=== PATIENT | male | born 1965 | race Caucasian/White ===

== ENCOUNTER 2020-08-19 13:02 | Emergency (ER) | payer MEDICAID, OTHER, SELFPAY ==
[~2020-08-19] VITALS: Ht 180.3 cm; Wt 99.7 kg
[2020-08-19 13:02] VITALS: BP 134/79
--- OUTSIDE RECORDS SUMMARY | 2020-08-19 13:09 | CCD ---
Author Author [facility] Organization [facility] Address Unknown Phone Unavailable Support Name Relationship Address Phone Rudolph SANCHEZ Next Of Kin [address] [place] [address] SELF EMPLOYED Next Of Kin [address] [place] [address] SE Next Of Kin Unknown Unavailable NONE, PATIENT PER Next Of Kin - - -, [place] - - KACIE SANCHEZ Next Of Kin [address] [place] [address] Re-disclosure Warning The records that you are about to access may contain information from federally-assisted alcohol or drug abuse programs. If such information is present, then the following federally mandated warning applies: This information has been disclosed to you from records protected by federal confidentiality rules (42 CFR part 2). The federal rules prohibit you from making any further disclosure of this information unless further disclosure is expressly permitted by the written consent of the person to whom it pertains or as otherwise permitted by 42 CFR part 2. A general authorization for the release of medical or other information is NOT sufficient for this purpose. The Federal rules restrict any use of the information to criminally investigate or prosecute any alcohol or drug abuse patient.The records that you are about to access may contain highly sensitive health information, the redisclosure of which is protected by Article 27-F of the [facility] Public Health law. If you continue you may have access to information: Regarding HIV / AIDS; Provided by facilities licensed or operated by the [facility] Office of Mental Health; or Provided by the [facility] Office for People With Developmental Disabilities. If such information is present, then the following [facility] mandated warning applies: This information has been disclosed to you from confidential records which are protected by state law. State law prohibits you from making any further disclosure of this information without the specific written consent of the person to whom it pertains, or as otherwise permitted by law. Any unauthorized further disclosure in violation of state law may result in a fine or detention sentence or both. A general authorization for the release of medical or other information is NOT sufficient authorization for further disc losure. Insurance Providers Payer name Policy type / Coverage type Policy ID Covered constitution party ID Covered constitution party's relationship to winter Policy Winter Plan Information [facility] COMMUNITY PLAN MCDO [id number] SP [id number] [facility] MEDICAID [id number] Denise [id number] [facility] MEDICAID PI PI [facility] COMMUNITY PLAN XIX [id number] 18 [id number] [facility] AMERICHOICE XIX -HMO [id number] 18 [id number] SELF PAY SP [id number] S [id number] [place] BLUE SHIELD -O/P [id number] 18 [id number]
[2020-08-19] MEDS ORDERED: DOXY100C37 PO (13:44)
--- OUTSIDE RECORDS SUMMARY | 2020-08-19 13:50 | CCD ---
Author Author [facility] Organization [facility] Address Unknown Phone Unavailable Support Name Relationship Address Phone Rudolph SANCHEZ Next Of Kin [address] [place] [address] SELF EMPLOYED Next Of Kin [address] [place] [address] SE Next Of Kin Unknown Unavailable NONE, PATIENT PER Next Of Kin - - -, [place] - - KACIE SANCHEZ Next Of Kin [address] [place] [address] Re-disclosure Warning The records that you are [...] is protected by Article 27-F of the [facility] Public Health law. If you continue you may have access to information: Regarding HIV / AIDS; Provided by facilities licensed or operated by the [facility] Office of Mental Health; or Provided by the [facility] Office for People With Developmental Disabilities. If such information is present, then the following [facility] mandated warning applies: This information has [...] law may result in a fine or long term sentence or both. A general authorization for the release of medical or other information is NOT sufficient authorization for further disc losure. Insurance Providers Payer name Policy type / Coverage type Policy ID Covered green party ID Covered green party's relationship to winter Policy Winter Plan Information [facility] COMMUNITY PLAN MCDO [id number] SP [id number] [facility] MEDICAID [id number] Denise [id number] [facility] MEDICAID PI PI [facility] COMMUNITY PLAN XIX [id number] 18 [id number] [facility] AMERICHOICE XIX -HMO [id number] 18 [id number] SELF PAY SP [id number] S [id number] [place] BLUE SHIELD -O/P [id number]
== END 2020-08-19 13:55 | disposition home or self-care (01) ==
LOC: M ED 13:02
DX: L03.313 Cellulitis of chest wall (principal); I10 Essential (primary) hypertension; F17.200 Nicotine dependence, unspecified, uncomplicated; F12.10 Cannabis abuse, uncomplicated

== ENCOUNTER → 2020-10-28 | Outpatient (REF) | payer OTHER ==
[~2020-10-28] MED LIST: DOXY100C37 PO
[2020-10-28 17:13] LABS: BASO # 0.1 10^3/uL (0.0-0.2); BASO % 0.5 % (0.0-1.0); EOS # 0.3 10^3/uL (0.0-0.5); EOS % 2.7 % (0.0-3.0); LYMPH # 2.8 10^3/uL (1.5-5.0); LYMPH % 23.4 % (24.0-44.0); MEAN CORPUSCULAR HGB CONC 32.6 g/dl (32.0-36.5); MONO # 0.8 10^3/uL (0.0-0.8); MONO % 6.3 % (2.0-8.0); NEUTROPHILS % 66.5 % (36.0-66.0); PLATELET COUNT, AUTOMATED 290 10^3/uL (150-450); RED BLOOD COUNT 4.84 10^6/uL (4.30-6.10)
[2020-10-28 17:48] LABS: ALBUMIN 4.3 GM/DL (3.2-5.2); ALT/SGPT 48 U/L (12-78); BILIRUBIN,TOTAL 0.3 MG/DL (0.2-1.0); BLOOD UREA NITROGEN 17 MG/DL (7-18); CALCIUM LEVEL 9.9 MG/DL (8.5-10.1); CARBON DIOXIDE LEVEL 28 MEQ/L (21-32); CHLORIDE LEVEL 103 MEQ/L (98-107); CHOLESTEROL LEVEL 211 MG/DL (<200); CHOLESTEROL RISK RATIO 3.459 (<5); CREATININE FOR GFR 0.91 MG/DL (0.70-1.30); FREE T4 1.02 NG/DL (0.76-1.46); GLOMERULAR FILTRATION RATE > 60.0 (>56); GLUCOSE, FASTING 92 MG/DL (70-100); HDL CHOLESTEROL 61 MG/DL (>40); LDL CHOLESTEROL 122 MG/DL (<100); MAGNESIUM LEVEL 2.3 MG/DL (1.8-2.4); NON-HDL-C 150 MG/DL; POTASSIUM SERUM 4.3 MEQ/L (3.5-5.1); SODIUM LEVEL 138 MEQ/L (136-145); TOTAL PROTEIN 7.9 GM/DL (6.4-8.2); TRIGLYCERIDES LEVEL 141 MG/DL (<150)
[2020-10-28 18:08] LABS: HEMOGLOBIN A1c 5.4 %
== END ==
LOC: M SFHCPLAZ 14:52
PROVIDERS: ATTEND Nurse Practitioner Family
DX: I10 Essential (primary) hypertension (principal); E78.5 Hyperlipidemia, unspecified

== ENCOUNTER → 2020-10-28 | Outpatient (CLI) | payer OTHER ==
--- NOTE | 2020-10-28 15:28 | REPPI ---
INDICATION: M54.5 BACK PAIN AT L4-L5 LEVEL COMPARISON: 08/01/2015 TECHNIQUE: AP, lateral, bilateral oblique, and coned-down views of the lumbar spine. FINDINGS: Alignment and lordosis maintained. Vertebral bodies are intact. No acute fracture/compression injury or subluxation. Moderate to advanced multilevel degenerative changes include endplate sclerosis, disc space narrowing, osteophytosis and facet hypertrophy. Findings appear minimally increased from prior examination. IMPRESSION: Moderate/early advanced multilevel degenerative changes. No acute fracture or dislocation <Electronically signed by Parker Dao > 10/28/20 1524
== END ==
LOC: M PLAIMG 14:53
PROVIDERS: ATTEND Nurse Practitioner Family
DX: M54.5 Low back pain (principal)

== ENCOUNTER → 2021-01-14 | Outpatient (CLI) | payer OTHER ==
[~2021-01-14] MED LIST changes: -DOXY100C37 PO; +DOXY1CAP62 PO
--- NOTE | 2021-01-14 18:35 | REPVR ---
PROCEDURE INFORMATION: Exam: MR Lumbar Spine Without Contrast Exam date and time: 01/14/2021 4:23 PM Age: 55 years old Clinical indication: Low back pain; Patient HX: Lbp; Additional info: Radiculopathy TECHNIQUE: Imaging protocol: Multiplanar magnetic resonance images of the lumbar spine without intravenous contrast. COMPARISON: CR SPINE LS COMPLETE 10/28/2020 3:16 PM FINDINGS: Vertebrae: Degenerative disc disease and facet arthrosis is present throughout the lower thoracic and lumbar spine. There are Schmorl's nodes throughout the lower thoracic and lumbar spine with Modic type 2 endplate signal change at all levels. Spinal cord: The lower thoracic cord has a normal appearance and the conus terminates at the level of the L1-L2 disc space. L1-L2: Mild posterior broad-based disc protrusion. The facet joints are unremarkable. No focal disc protrusion or nerve root impingement. Mild spinal stenosis. L2-L3: Mild posterior broad-based disc bulge. Right foraminal/far lateral focal disc bulge. Mild bilateral facet hypertrophy. No definite nerve root impingement. Mild spinal stenosis. L3-L4: Posterior broad-based disc protrusion. Posterior central/right posterior paracentral focal disc extrusion. The extruded disc material measures approximately 10 mm long by 8 mm AP x 10 mm transverse. There is moderate bilateral facet hypertrophy and ligamentum flavum thickening. Moderate spinal stenosis. L4-L5: There is Modic type 1 endplate signal change and increased signal within the disc space at L4-L5. Minimal retrolisthesis of L4. Posterior broad-based disc protrusion, bilateral facet hypertrophy and ligamentum flavum thickening, worse on the right. No focal disc protrusion or nerve root impingement. Moderate/severe spinal stenosis. L5-S1: Posterior broad-based disc protrusion and mild bilateral facet hypertrophy. No focal disc protrusion or nerve root impingement. Mild spinal stenosis. Soft tissues: Unremarkable. IMPRESSION: 1. Degenerative disc disease and facet arthrosis throughout the lower thoracic and lumbar spine with Schmorl's nodes and associated Modic type 2 endplate signal change throughout. 2. Modic type 1 endplate signal change at L4-L5. While this is likely secondary to degenerative disc disease, these signal characteristics may also be seen with disco-vertebral infection. Close clinical correlation and follow-up MRI is recommended as clinically warranted. 3. L3-L4 posterior central/right posterior paracentral focal disc extrusion. 4. Moderate severe spinal stenosis at L4-L5. Electronically signed by: Noe Franco On 01/14/2021 18:34:41 PM
== END ==
LOC: M RAD 15:08
PROVIDERS: ATTEND Nurse Practitioner Family
DX: M47.27 Other spondylosis with radiculopathy, lumbosacral region (principal)

== ENCOUNTER → 2021-01-17 | Outpatient (CLI) | payer OTHER ==
[~2021-01-17] MED LIST changes: +DOXY-443 PO; -DOXY1CAP62 PO; +POLYSOL OD
== END ==
LOC: M PLAIMG 14:46
PROVIDERS: ATTEND Nurse Practitioner Family
DX: M25.551 Pain in right hip (principal)

== ENCOUNTER → 2021-01-17 | Outpatient (CLI) | payer OTHER ==
[2021-01-17 13:36] LABS: BASO # 0.1 10^3/uL (0.0-0.2); BASO % 0.8 % (0.0-1.0); EOS # 0.2 10^3/uL (0.0-0.5); EOS % 1.5 % (0.0-3.0); HEMATOCRIT 44.3 % (42.0-52.0); HEMOGLOBIN 14.7 g/dl (13.5-17.5); LYMPH # 2.8 10^3/uL (1.5-5.0); LYMPH % 26.9 % (24.0-44.0); MEAN CORPUSCULAR HEMOGLOBIN 31.7 pg (27.0-33.0); MEAN CORPUSCULAR HGB CONC 33.2 g/dl (32.0-36.5); MEAN CORPUSCULAR VOLUME 95.7 fl (80.0-96.0); MONO # 0.7 10^3/uL (0.0-0.8); NEUTROPHILS # 6.5 10^3/uL (1.5-8.5); NEUTROPHILS % 63.3 % (36.0-66.0); PLATELET COUNT, AUTOMATED 267 10^3/uL (150-450); RED BLOOD COUNT 4.63 10^6/uL (4.30-6.10); WHITE BLOOD COUNT 10.2 10^3/uL (4.0-10.0)
[2021-01-17 15:12] LABS: ERYTHROCYTE SEDIMENTATION RATE 5 mm/hr (0-20)
== END ==
LOC: M PLALAB 10:12
PROVIDERS: ATTEND Nurse Practitioner Family
DX: M51.26 Other intervertebral disc displacement, lumbar region (principal)

== ENCOUNTER 2021-04-05 07:44 | Emergency (ER) | payer OTHER ==
[~2021-04-05] VITALS: Ht 177.8 cm; Wt 99.9 kg
[~2021-04-05 07:44] MED LIST changes: -DOXY-443 PO; +DOXY1CAP62 PO; -POLYSOL OD
[2021-04-05] MEDS ORDERED: FLUORESCEIN OPHTH 1 MG STRIP OD ONE (08:55)
[2021-04-05] MEDS ORDERED: TETRACAINE 0.5% OPHTH SOLN 4ML OD ONE (08:55)
[2021-04-05] MEDS ORDERED: POLYSOL OD (09:58)
[2021-04-05 10:14] VITALS: BP 134/74
[2021-04-05] MEDS ORDERED: BOOSTRIX/ADACEL VACCINE (DIPHTH/PERTUSS/ACELL/TETANUS) 0.5ML SYR IM ONE (10:45)
== END 2021-04-05 10:30 | disposition home or self-care (01) ==
LOC: M ED 07:44
DX: S05.01XA Injury of conjunctiva and corneal abrasion without foreign body, right eye, initial encounter (principal); X58.XXXA Exposure to other specified factors, initial encounter; Y92.9 Unspecified place or not applicable; Y93.9 Activity, unspecified; Y99.9 Unspecified external cause status; I25.10 Atherosclerotic heart disease of native coronary artery without angina pectoris; I10 Essential (primary) hypertension; E78.5 Hyperlipidemia, unspecified; J44.9 Chronic obstructive pulmonary disease, unspecified; F17.200 Nicotine dependence, unspecified, uncomplicated

== ENCOUNTER → 2021-11-15 | Outpatient (CLI) | payer OTHER ==
[~2021-11-15] MED LIST changes: +DOXY-443 PO; -DOXY1CAP62 PO; +POLYSOL OD
== END ==
LOC: M PLAIMG 12:24
PROVIDERS: ATTEND Neurological Surgery
DX: M51.16 Intervertebral disc disorders with radiculopathy, lumbar region (principal)

== ENCOUNTER → 2022-10-22 | Outpatient (CLI) | payer OTHER ==
[2022-10-22 16:42] LABS: BASO # 0.1 10^3/uL (0.0-0.2); BASO % 0.7 % (0.0-1.0); EOS # 0.2 10^3/uL (0.0-0.5); EOS % 2.5 % (0.0-3.0); HEMATOCRIT 47.2 % (42.0-52.0); HEMOGLOBIN 15.5 g/dl (13.5-17.5); LYMPH # 2.1 10^3/uL (1.5-5.0); LYMPH % 21.7 % (24.0-44.0); MEAN CORPUSCULAR HEMOGLOBIN 31.8 pg (27.0-33.0); MEAN CORPUSCULAR HGB CONC 32.8 g/dl (32.0-36.5); MEAN CORPUSCULAR VOLUME 96.9 fl (80.0-96.0); MONO # 0.8 10^3/uL (0.0-0.8); MONO % 8.4 % (2.0-8.0); NEUTROPHILS # 6.4 10^3/uL (1.5-8.5); NEUTROPHILS % 66.2 % (36.0-66.0); PLATELET COUNT, AUTOMATED 247 10^3/uL (150-450); RED BLOOD COUNT 4.87 10^6/uL (4.30-6.10); WHITE BLOOD COUNT 9.7 10^3/uL (4.0-10.0)
[2022-10-22 17:08] LABS: ALBUMIN 3.9 G/DL (3.2-5.2); ALKALINE PHOSPHATASE 55 U/L (46-116); ALT/SGPT 44 U/L (7.0-40); AST/SGOT 24 U/L (<34); BILIRUBIN,TOTAL 0.4 MG/DL (0.3-1.2); BLOOD UREA NITROGEN 11 MG/DL (9-23); CARBON DIOXIDE LEVEL 29 MMOL/L (20-31); CHLORIDE LEVEL 104 MMOL/L (98-107); CHOLESTEROL LEVEL 212 MG/DL (<200); CHOLESTEROL RISK RATIO 3.71 (<5); CREATININE FOR GFR 0.84 MG/DL (0.70-1.30); GLOMERULAR FILTRATION RATE > 60.0 (>56); GLUCOSE, FASTING 89 MG/DL (60-100); LDL CHOLESTEROL 126.8 MG/DL (<100); POTASSIUM SERUM 4.1 MMOL/L (3.5-5.1); SODIUM LEVEL 137 MMOL/L (136-145); TOTAL PROTEIN 7.4 G/DL (5.7-8.2); TRIGLYCERIDES LEVEL 141 MG/DL (<150)
[2022-10-22 17:10] LABS: THYROID STIMULATING HORMONE 1.383 uIU/ML (0.55-4.78)
== END ==
LOC: M PLALAB 11:51
PROVIDERS: ATTEND Nurse Practitioner Family
DX: I10 Essential (primary) hypertension (principal)

== ENCOUNTER 2022-10-23 00:01 | Emergency (ER) | payer OTHER ==
[~2022-10-23] VITALS: Ht 177.8 cm; Wt 106.8 kg
[2022-10-23 00:02] VITALS: BP 186/91
== END 2022-10-23 00:38 | disposition left against medical advice (07) ==
LOC: M ED 00:01
DX: Z53.21 Procedure and treatment not carried out due to patient leaving prior to being seen by health care provider (principal)

== ENCOUNTER → 2022-10-25 | Outpatient (REF) | payer OTHER | LOC: M SFHCPLAZ 14:35 | PROVIDERS: ATTEND Nurse Practitioner Family | DX: B83.9 Helminthiasis, unspecified (principal) ==

== ENCOUNTER 2023-08-30 11:32 | Emergency (ER) | payer OTHER, SELFPAY ==
[~2023-08-30] VITALS: Ht 177.8 cm; Wt 230.0 kg
[2023-08-30 13:14] LABS: BASO # 0.1 10^3/uL (0.0-0.2); BASO % 0.7 % (0.0-1.0); EOS # 0.5 10^3/uL (0.0-0.5); EOS % 4.3 % (0.0-3.0); HEMATOCRIT 45.5 % (42.0-52.0); HEMOGLOBIN 15.4 g/dl (13.5-17.5); LYMPH # 2.9 10^3/uL (1.5-5.0); LYMPH % 26.4 % (24.0-44.0); MEAN CORPUSCULAR HEMOGLOBIN 32.4 pg (27.0-33.0); MEAN CORPUSCULAR HGB CONC 33.8 g/dl (32.0-36.5); MEAN CORPUSCULAR VOLUME 95.8 fl (80.0-96.0); MONO # 0.8 10^3/uL (0.0-0.8); MONO % 7.3 % (2.0-8.0); NEUTROPHILS # 6.6 10^3/uL (1.5-8.5); NEUTROPHILS % 60.8 % (36.0-66.0); PLATELET COUNT, AUTOMATED 220 10^3/uL (150-450); RED BLOOD COUNT 4.75 10^6/uL (4.30-6.10); WHITE BLOOD COUNT 10.8 10^3/uL (4.0-10.0)
[2023-08-30] MEDS ORDERED: ISOVUE-370 76% 100ML VIAL As Ordered ONE (13:19)
[2023-08-30 13:27] LABS: INR 0.91; PARTIAL THROMBOPLASTIN TIME 29.8 SECONDS (24.8-34.2)
[2023-08-30 13:34] LABS: ALBUMIN 3.4 G/DL (3.2-5.2); ALKALINE PHOSPHATASE 59 U/L (46-116); ALT/SGPT 38 U/L (7.0-40); AST/SGOT 20 U/L (<34); BILIRUBIN,DIRECT 0.1 MG/DL (<0.4); BILIRUBIN,TOTAL 0.4 MG/DL (0.3-1.2); BLOOD UREA NITROGEN 12 MG/DL (9-23); CALCIUM LEVEL 8.9 MG/DL (8.5-10.1); CARBON DIOXIDE LEVEL 29 MMOL/L (20-31); CHLORIDE LEVEL 104 MMOL/L (98-107); CREATININE FOR GFR 0.78 MG/DL (0.70-1.30); GLOMERULAR FILTRATION RATE > 60.0 (>56); GLUCOSE, FASTING 159 MG/DL (60-100); POTASSIUM SERUM 3.8 MMOL/L (3.5-5.1); SODIUM LEVEL 138 MMOL/L (136-145); TOTAL PROTEIN 6.4 G/DL (5.7-8.2)
[2023-08-30 15:29] VITALS: BP 122/75; TEMP 97.7; O2SAT 100
== END 2023-08-30 15:32 | disposition home or self-care (01) ==
LOC: M ED 11:32
DX: S40.021A Contusion of right upper arm, initial encounter (principal); Y92.9 Unspecified place or not applicable; Y93.9 Activity, unspecified; Y99.9 Unspecified external cause status; J44.9 Chronic obstructive pulmonary disease, unspecified; I10 Essential (primary) hypertension; E78.00 Pure hypercholesterolemia, unspecified; I25.119 Atherosclerotic heart disease of native coronary artery with unspecified angina pectoris
CPT/HCPCS: 73060; 73206; 80047; 80048; 80076; 85025; 85610; 85730; 93971; 96374; 99284; Q9967

== ENCOUNTER 2023-12-08 04:52 | Emergency (ER) | payer MEDICAID ==
[~2023-12-08] VITALS: Ht 177.8 cm; Wt 104.5 kg
[2023-12-08 04:52] VITALS: TEMP 97.8
[~2023-12-08 04:52] MED LIST changes: +DOXY-323 PO; -DOXY-443 PO
[2023-12-08] MEDS: BOOSTRIX VACCINE (TETANUS/DIPHTH/ACEL. PERTUSSIS) 0.5ML SYR IM.IMMUN ONE (06:40)
[2023-12-08 06:45] VITALS: BP 156/86; O2SAT 93
[2023-12-08] MEDS ORDERED: PERC5TAB12 PO (07:54)
[2023-12-08] MEDS ORDERED: AMOX875T2 PO (07:54)
[2023-12-08] MEDS: MUPIROCIN 2% OINT 22 GM TUBE TOP ONE (07:59)
== END 2023-12-08 08:03 | disposition home or self-care (01) ==
LOC: M ED 04:52
DX: S00.03XA Contusion of scalp, initial encounter (principal); S01.111A Laceration without foreign body of right eyelid and periocular area, initial encounter; W10.8XXA Fall (on) (from) other stairs and steps, initial encounter; F10.10 Alcohol abuse, uncomplicated; Y92.009 Unspecified place in unspecified non-institutional (private) residence as the place of occurrence of the external cause; Y93.89 Activity, other specified; Y99.9 Unspecified external cause status

== ENCOUNTER 2024-01-07 09:30 | Emergency (ER) | payer MEDICAID, OTHER ==
[~2024-01-07] VITALS: Ht 177.8 cm; Wt 114.0 kg
[~2024-01-07 09:30] MED LIST changes: +AMOX875T2 PO; +PERC5TAB12 PO
[2024-01-07] MEDS ORDERED: ATOR40TA75 (09:40)
[2024-01-07] MEDS ORDERED: LISI10TA22 (09:40)
[2024-01-07] MEDS ORDERED: ASPI81CH33 PO (09:40)
[2024-01-07] MEDS: PERCOCET 5MG/325MG TAB PO ONE (12:46)
[2024-01-07] MEDS: LIDOCAINE 2% MDV 20ML VIAL SC ONE (12:46)
[2024-01-07] MEDS ORDERED: PERC5TAB12 PO (13:15)
[2024-01-07] MEDS ORDERED: CEPH500C PO (13:15)
[2024-01-07] MEDS: CEPHALEXIN 500 MG CAP PO ONE (13:18)
[2024-01-07 13:38] VITALS: BP 168/79; TEMP 97.4; O2SAT 97
== END 2024-01-07 13:39 | disposition home or self-care (01) ==
LOC: M ED 09:30
DX: S61.206A Unspecified open wound of right little finger without damage to nail, initial encounter (principal); S62.606A Fracture of unspecified phalanx of right little finger, initial encounter for closed fracture; Y92.9 Unspecified place or not applicable; Y93.9 Activity, unspecified; Y99.9 Unspecified external cause status; Z79.2 Long term (current) use of antibiotics; Z79.1 Long term (current) use of non-steroidal anti-inflammatories (NSAID); Z79.899 Other long term (current) drug therapy

== ENCOUNTER → 2024-01-10 | Outpatient (CLI) | payer OTHER ==
[~2024-01-10] MED LIST changes: +ASPI81CH33 PO; +ATOR40TA75; +CEPH500C PO; +LISI10TA22
== END ==
LOC: M SOG 10:28
PROVIDERS: ATTEND Orthopaedic Surgery Hand Surgery
DX: M25.532 Pain in left wrist (principal); M79.644 Pain in right finger(s)

== ENCOUNTER 2024-01-15 12:01 | Day surgery (SDC) | payer OTHER ==
[~2024-01-15] VITALS: Ht 177.8 cm; Wt 115.5 kg
[~2024-01-15 12:01] MED LIST changes: -ATOR40TA75; +ATOR40TA75 PO; -LISI10TA22; +LISI10TA22 PO
[2024-01-15] MEDS: LR 1,000 ML IV SCH (12:45)
[2024-01-15] MEDS ORDERED: ONDANSETRON 4MG 2ML VIAL As Ordered ONE (12:48)
[2024-01-15] MEDS ORDERED: KETOROLAC 60MG 2ML VIAL As Ordered ONE (12:48)
[2024-01-15] MEDS ORDERED: propofoL 200 MG/20 ML VIAL As Ordered ONE (12:48)
[2024-01-15] MEDS ORDERED: ACETAMINOPHEN 1000MG 100ML IV BAG As Ordered ONE (12:48)
[2024-01-15] MEDS ORDERED: LIDOCAINE 2% 100MG/5ML SDV (FOR ANES.) As Ordered ONE (12:48)
[2024-01-15] MEDS ORDERED: fentaNYL 100 MCG/2 ML INJECTION As Ordered ONE (12:49)
[2024-01-15] MEDS ORDERED: MIDAZOLAM INJ 2MG/2ML VIAL As Ordered ONE (12:49)
[2024-01-15] MEDS ORDERED: dexmedeTOMIDine (4MCG/ML)200MCG/50ML BTL (PRECEDEX) As Ordered ONE (12:55)
[2024-01-15] MEDS ORDERED: diphenhydrAMINE 50MG/ML VIAL As Ordered ONE (15:00)
[2024-01-15] MEDS: ceFAZolin SOD 2 GM in IV 1 EA IV ONE (15:11)
[2024-01-15] MEDS ORDERED: methylPREDNISolone 40MG 1ML VIAL As Ordered ONE (15:14)
[2024-01-15] MEDS ORDERED: PHENYLephrine 500MCG 5ML (100MCG/ML) SYRINGE As Ordered ONE (15:31)
[2024-01-15] MEDS: BACITRACIN OINTMENT 30GM TUBE As Ordered ONE (15:39)
[2024-01-15] MEDS ORDERED: ONDANSETRON 4MG 2ML VIAL IV PRN (16:10)
[2024-01-15] MEDS ORDERED: fentaNYL 100 MCG/2 ML INJECTION IV PRN (16:10)
[2024-01-15] MEDS ORDERED: LR 1,000 ML IV SCH (16:10)
[2024-01-15] MEDS ORDERED: oxyCODONE 5MG TAB PO PRN (16:10)
[2024-01-15] MEDS ORDERED: PERC5TAB12 PO (16:19)
[2024-01-15] MEDS: ALBUTEROL SULFATE 2.5MG/0.5ML INH NEB SOLN INH ONE (17:09)
[2024-01-15 18:05] VITALS: BP 119/61; TEMP 97.7; O2SAT 93
== END 2024-01-15 18:28 | disposition home or self-care (01) ==
LOC: M SDC 12:01
PROVIDERS: ATTEND Orthopaedic Surgery Hand Surgery
DX: S62.616A Displaced fracture of proximal phalanx of right little finger, initial encounter for closed fracture (principal); X58.XXXA Exposure to other specified factors, initial encounter; Y92.9 Unspecified place or not applicable; Y93.9 Activity, unspecified; Y99.9 Unspecified external cause status; I10 Essential (primary) hypertension; Z95.5 Presence of coronary angioplasty implant and graft; G47.9 Sleep disorder, unspecified; F17.219 Nicotine dependence, cigarettes, with unspecified nicotine-induced disorders; Z79.899 Other long term (current) drug therapy
CPT/HCPCS: 26727; 76000; J0131; J0665; J0690; J1100; J1200; J1885; J2250; J2371; J2405; J2919; J3010

== ENCOUNTER → 2024-01-23 | Outpatient (CLI) | payer OTHER | LOC: M SOG 15:02 | PROVIDERS: ATTEND Physician Assistant | DX: S62.616A Displaced fracture of proximal phalanx of right little finger, initial encounter for closed fracture (principal); Y93.9 Activity, unspecified; Y92.9 Unspecified place or not applicable ==

== ENCOUNTER → 2024-02-04 | Outpatient (CLI) | payer OTHER | LOC: M SOG 08:07 | PROVIDERS: ATTEND Physician Assistant | DX: S62.616D Displaced fracture of proximal phalanx of right little finger, subsequent encounter for fracture with routine healing (principal) ==

== ENCOUNTER 2024-02-10 14:36 | Emergency (ER) | payer OTHER ==
[~2024-02-10] VITALS: Ht 177.8 cm; Wt 116.2 kg
[2024-02-10 16:47] LABS: BASO # 0.1 10^3/uL (0.0-0.2); BASO % 0.6 % (0.0-1.0); EOS # 0.2 10^3/uL (0.0-0.5); EOS % 2.3 % (0.0-3.0); HEMOGLOBIN 14.7 g/dl (13.5-17.5); LYMPH # 2.2 10^3/uL (1.5-5.0); LYMPH % 20.5 % (24.0-44.0); MEAN CORPUSCULAR HEMOGLOBIN 32.8 pg (27.0-33.0); MEAN CORPUSCULAR HGB CONC 33.4 g/dl (32.0-36.5); MEAN CORPUSCULAR VOLUME 98.2 fl (80.0-96.0); MONO # 0.9 10^3/uL (0.0-0.8); MONO % 8.3 % (2.0-8.0); NEUTROPHILS # 7.2 10^3/uL (1.5-8.5); NEUTROPHILS % 67.8 % (36.0-66.0); PLATELET COUNT, AUTOMATED 226 10^3/uL (150-450); RED BLOOD COUNT 4.48 10^6/uL (4.30-6.10); WHITE BLOOD COUNT 10.6 10^3/uL (4.0-10.0)
[2024-02-10 17:07] LABS: ERYTHROCYTE SEDIMENTATION RATE 46 mm/hr (0-20)
[2024-02-10 17:53] LABS: ALBUMIN 3.7 G/DL (3.2-5.2); ALKALINE PHOSPHATASE 73 U/L (46-116); ALT/SGPT 43 U/L (7.0-40); AST/SGOT 24 U/L (<34); BILIRUBIN,DIRECT 0.1 MG/DL (<0.4); BILIRUBIN,TOTAL 0.5 MG/DL (0.3-1.2); BLOOD UREA NITROGEN 14 MG/DL (9-23); CALCIUM LEVEL 9.1 MG/DL (8.5-10.1); CARBON DIOXIDE LEVEL 30 MMOL/L (20-31); CHLORIDE LEVEL 104 MMOL/L (98-107); CREATININE FOR GFR 0.83 MG/DL (0.70-1.30); GLOMERULAR FILTRATION RATE > 60.0 (>56); GLUCOSE, FASTING 106 MG/DL (60-100); POTASSIUM SERUM 4.3 MMOL/L (3.5-5.1); SODIUM LEVEL 138 MMOL/L (136-145); TOTAL PROTEIN 7.3 G/DL (5.7-8.2)
[2024-02-10] MEDS: KETOROLAC 30 MG/ML 1ML VIAL IV ONE (17:56)
[2024-02-10] MEDS ORDERED: IBUP200C25 PO (18:07)
[2024-02-10] MEDS ORDERED: HOME MED LIST COMPLETE! XX SCH (18:10)
[2024-02-10] MEDS: ceFAZolin SOD 2 GM in IV 1 EA IV ONE (19:11)
[2024-02-10] MEDS ORDERED: CEPH500C PO (19:42)
[2024-02-10 19:53] VITALS: BP 135/83; TEMP 97.6; O2SAT 97
[2024-02-11] MEDS ORDERED: ALBU8.5H (10:49)
== END 2024-02-10 19:56 | disposition home or self-care (01) ==
LOC: M ED 14:36
DX: T81.49XA Infection following a procedure, other surgical site, initial encounter (principal); J44.9 Chronic obstructive pulmonary disease, unspecified; E78.5 Hyperlipidemia, unspecified; I10 Essential (primary) hypertension; Z79.1 Long term (current) use of non-steroidal anti-inflammatories (NSAID); Z79.51 Long term (current) use of inhaled steroids; Z79.899 Other long term (current) drug therapy
CPT/HCPCS: 73130; 80048; 80076; 83605; 85025; 85652; 86140; 87040; 87070; 87077; 87186; 87205; 93041; 94760; 96365; 96374; 99284; J0690; J1885

== ENCOUNTER 2024-02-12 11:17 | Day surgery (SDC) | payer OTHER ==
[~2024-02-12] VITALS: Ht 177.8 cm; Wt 114.6 kg
[~2024-02-12 11:17] MED LIST changes: +ALBU8.5H; +IBUP200C25 PO
[2024-02-12] MEDS ORDERED: CEFA500C2 PO (11:56)
[2024-02-12] MEDS ORDERED: LR 1,000 ML IV SCH ×2 (12:05→14:10)
[2024-02-12] MEDS ORDERED: fentaNYL 100 MCG/2 ML INJECTION As Ordered ONE (12:50)
[2024-02-12] MEDS ORDERED: LIDOCAINE 2% 100MG/5ML SDV (FOR ANES.) As Ordered ONE (12:50)
[2024-02-12] MEDS ORDERED: propofoL 200 MG/20 ML VIAL As Ordered ONE (12:50)
[2024-02-12] MEDS: ceFAZolin 2 GM/D5W 50 ML IV BAG As Ordered ONE (13:28)
[2024-02-12] MEDS ORDERED: ACETAMINOPHEN 1000MG 100ML IV BAG As Ordered ONE (13:29)
[2024-02-12] MEDS ORDERED: SUCCINYLCHOLINE 100MG/5ML SYRINGE As Ordered ONE (13:58)
[2024-02-12] MEDS ORDERED: fentaNYL 100 MCG/2 ML INJECTION IV PRN (14:10)
[2024-02-12] MEDS ORDERED: HYDROMORPHONE HCL 0.5 MG/ 0.5 ML SYRINGE IV PRN (14:10)
[2024-02-12] MEDS ORDERED: oxyCODONE 5MG TAB PO PRN (14:10)
[2024-02-12] MEDS ORDERED: ONDANSETRON 4MG 2ML VIAL IV PRN (14:10)
[2024-02-12] MEDS ORDERED: CLIN150C17 PO (14:26)
[2024-02-12 15:00] VITALS: BP 156/86; TEMP 97.2; O2SAT 95
== END 2024-02-12 15:21 | disposition home or self-care (01) ==
LOC: M SDC 11:17
PROVIDERS: ATTEND Orthopaedic Surgery
DX: T84.84XA Pain due to internal orthopedic prosthetic devices, implants and grafts, initial encounter (principal); T84.69XA Infection and inflammatory reaction due to internal fixation device of other site, initial encounter; S62.616D Displaced fracture of proximal phalanx of right little finger, subsequent encounter for fracture with routine healing; B95.62 Methicillin resistant Staphylococcus aureus infection as the cause of diseases classified elsewhere; Y79.2 Prosthetic and other implants, materials and accessory orthopedic devices associated with adverse incidents; I10 Essential (primary) hypertension; E78.00 Pure hypercholesterolemia, unspecified; R06.83 Snoring; Z79.899 Other long term (current) drug therapy; Z79.82 Long term (current) use of aspirin; F17.210 Nicotine dependence, cigarettes, uncomplicated
CPT/HCPCS: 10140; 20680; 76000; 87070; 87075; 87077; 87186; 93005; J0131; J0330; J0690; J3010